=== PATIENT | male | born 2000 | race African-American/Black ===

== ENCOUNTER 2020-10-03 16:09 | Emergency (ER) | payer SELFPAY ==
[2020-10-03] MEDS ORDERED: Bupivacaine 0.5% 10 ML VIAL ONE (16:34)
== END 2020-10-03 17:54 | disposition home or self-care (01) ==
LOC: ERS 16:09
DX: L05.01 Pilonidal cyst with abscess (principal)
CPT/HCPCS: 10080; J3490

== ENCOUNTER 2021-06-20 08:09 | Emergency (ER) | payer OTHER, SELFPAY ==
[2021-06-20 17:27] LABS: SARS-CoV-2 PCR by NAA Not Detected (NotDetected)
== END 2021-06-20 08:26 | disposition home or self-care (01) ==
LOC: ERS 08:09
DX: Z20.822 Contact with and (suspected) exposure to COVID-19 (principal)
CPT/HCPCS: 99283; U0003; U0005

== ENCOUNTER 2021-10-18 13:48 | Emergency (ER) | payer SELFPAY ==
[2021-10-18 21:53] LABS: SARS-CoV-2 PCR by NAA DETECTED (NotDetected)
== END 2021-10-18 14:59 | disposition home or self-care (01) ==
LOC: ERS 13:48
DX: U07.1 COVID-19 (principal)
CPT/HCPCS: 87804; 99283; U0003; U0005

== ENCOUNTER 2022-04-18 15:58 | Emergency (ER) | payer SELFPAY ==
[2022-04-18 16:44] LABS: #Basophils 0.1 thou/uL (0.0-0.2); #Eosinphils 0.1 thou/uL (0.0-0.7); #Lymphocytes 2.5 thou/uL (1.20-3.40); #Monocytes 0.7 thou/uL (0.11-0.59); #Neutrophils 5.4 thou/uL (1.40-6.50); %Basophils 1.2 % (0.0-1.0); %Eosinophils 1.2 % (0.0-10.0); %Lymphocytes 28.6 % (21.0-51.0); %Monocytes 8.4 % (0.0-10.0); %Neutrophils 60.7 % (42.0-75.0); Hemoglobin 15.5 g/dL (14.0-18.0); Mean Corpuscular Hemoglobin 22.5 pg (27.0-31.0); Mean Corpuscular Volume 70.1 fL (78.0-98.0); Mean Platelet Volume 11.2 fL (7.4-10.4); Platelet Count 219 thou/uL (130-400); RBC Distribution Width 13.5 % (11.5-14.5); White Blood Cell (WBC) Count 8.8 thou/uL (4.8-10.8)
[2022-04-18 17:11] LABS: ALT (SGPT) 55 U/L (8-55); AST (SGOT) 49 U/L (5-34); Albumin 5.5 g/dL (3.5-5.0); Alkaline Phosphatase 87 U/L (40-110); Anion Gap 21 mmol/L (10-20); BUN (Urea Nitrogen) 25 mg/dL (8.9-20.6); CK (CPK) 312 U/L (30-200); Calc. Creatinine Clearance 0 mL/min (70-130); Calcium 11.8 mg/dL (7.8-10.44); Carbon Dioxide 25 mmol/L (22-29); Chloride 96 mmol/L (98-107); Estimated GFR 38; Globulin 5.1 g/dL (2.4-3.5); Glucose 75 mg/dL (70-105); Potassium 5.2 mmol/L (3.5-5.1); Protein, Total 10.6 g/dL (6.0-8.3); Sodium 137 mmol/L (136-145)
[2022-04-18 17:41] LABS: Hypochromia SLIGHT = 6-15 cells (100X) (0-5/hpf); MDiff Complete? YES; Microcytosis MODERATE=15-30 cells (100X) (0-5/hpf); Platelet Morphology Comment Appears Adequate; Polychromasia SLIGHT = 2-3 cells (100X) (0-2/hpf)
[2022-04-18 18:59] LABS: Bilirubin Negative (Negative); Blood, Urine Negative (Negative); Clarity Clear (Clear); Glucose, Urine (Dipstick) Normal (Negative); Ketone, Urine Negative (Negative); Leukocyte Negative Leu/uL (Negative); Nitrite Negative (Negative); Protein, Urine (Dipstick) 20 mg/dL (Neg-Trace); Specific Gravity, Urine 1.022 (1.002-1.036); Urobilinogen Normal mg/dL (Less than 2)
[2022-04-18 19:33] LABS: ALT (SGPT) 42 U/L (8-55); AST (SGOT) 31 U/L (5-34); Albumin 4.3 g/dL (3.5-5.0); Alkaline Phosphatase 78 U/L (40-110); Anion Gap 15 mmol/L (10-20); BUN (Urea Nitrogen) 23 mg/dL (8.9-20.6); Bilirubin, Total 0.6 mg/dL (0.2-1.2); Calc. Creatinine Clearance 0 mL/min (70-130); Calcium 9.4 mg/dL (7.8-10.44); Carbon Dioxide 24 mmol/L (22-29); Chloride 102 mmol/L (98-107); Estimated GFR 57; Globulin 3.4 g/dL (2.4-3.5); Glucose 84 mg/dL (70-105); Protein, Total 7.7 g/dL (6.0-8.3); Sodium 137 mmol/L (136-145)
[2022-04-18] MEDS ORDERED: Acetaminophen 500 MG TAB ONE (20:12)
== END 2022-04-18 20:18 | disposition home or self-care (01) ==
LOC: ERS 15:58
DX: T67.5XXA Heat exhaustion, unspecified, initial encounter (principal); N17.9 Acute kidney failure, unspecified; I10 Essential (primary) hypertension; E86.0 Dehydration; E87.5 Hyperkalemia; E83.52 Hypercalcemia; R79.89 Other specified abnormal findings of blood chemistry
CPT/HCPCS: 36415; 80053; 81003; 82550; 84484; 85025; 93005

== ENCOUNTER 2023-11-30 18:58 | Emergency (ER) | payer OTHER, SELFPAY ==
[2023-11-30 20:36] LABS: SARS-CoV-2 NAA Rapid Test Not Detected (NotDetected)
== END 2023-11-30 21:12 | disposition home or self-care (01) ==
LOC: ERS 18:58
DX: Z20.822 Contact with and (suspected) exposure to COVID-19 (principal)
CPT/HCPCS: 99283